=== PATIENT | male | born 1995 | race African-American/Black ===

== ENCOUNTER 2016-10-17 15:53 | Emergency (ER) | payer SELFPAY ==
[~2016-10-17] VITALS: Ht 180.3 cm; Wt 70.3 kg
[~2016-10-17 15:53] MED LIST: DOCU-27 PO; HYDR-2666 PO
[2016-10-17] MEDS ORDERED: IV NORMAL SALINE 1000ML BAG 1,000 ML IV ONE (16:15)
[2016-10-17] MEDS ORDERED: ONDANSETRON PF 4 MG/2 ML VIAL. IV ONE (16:15)
[2016-10-17 16:42] LABS: BASO # 0.1 x10^3/uL (0.0-0.2); BASO % 1 % (0-3); EOS % 2 % (0-3); HEMOGLOBIN 13.8 g/dL (13.0-17.5); LYMPH # 2.3 x10^3/uL (1.0-4.8); LYMPH % 30 % (24-48); MEAN CORPUSCULAR HEMOGLOBIN 27 pg (25-35); MEAN CORPUSCULAR HGB CONC 33 g/dL (31-37); MEAN CORPUSCULAR VOLUME 82 fL (79-100); MONO % 8 % (0-9); NEUT % 60 % (31-73); PLATELET COUNT 206 x10^3/uL (140-400); RED BLOOD COUNT 5.15 x10^6/uL (4.30-5.70); RED CELL DISTRIBUTION WIDTH 13.6 % (11.5-14.5); WHITE BLOOD COUNT 7.7 x10^3/uL (4.0-11.0)
[2016-10-17 17:02] LABS: CREATININE 1.1 mg/dL (0.7-1.3); GFR 100.4; POTASSIUM 3.8 mmol/L (3.5-5.1)
[2016-10-17 17:16] LABS: ALBUMIN 3.7 g/dL (3.4-5.0); TOTAL BILIRUBIN 0.3 mg/dL (0.2-1.0); TOTAL PROTEIN 7.4 g/dL (6.4-8.2)
[2016-10-17] MEDS ORDERED: ONDA4TAB7 PO (17:33)
--- NOTE | 2016-10-17 17:33 | PHYS DOC ---
Past Medical History Past Medical History: No Pertinent History Past Surgical History: Other Additional Past Surgical Histo: HEMORRHOID Additional Information: 0.25 PPD Alcohol Use: None Drug Use: Marijuana Adult General Chief Complaint Chief Complaint: NAUSEA/VOMITING/DIARRHA HPI HPI 21-year-old otherwise healthy male presents to day history of cough and nausea. He states he has been coughing up some green phlegm. He is not had any high fevers chills or sweats. No hemoptysis. [] Review of Systems Review of Systems Constitutional: Denies fever or chills [] Eyes: Denies change in visual acuity, redness, or eye pain [] HENT: Denies nasal congestion or sore throat [] Respiratory: Denies cough or shortness of breath [] Cardiovascular: No additional information not addressed in HPI [] GI: Per history of present illness [] : Denies dysuria or hematuria [] Musculoskeletal: Denies back pain or joint pain [] Integument: Denies rash or skin lesions [] Neurologic: Denies headache, focal weakness or sensory changes [] Endocrine: Denies polyuria or polydipsia [] Current Medications Current Medications Current Medications Medications (Trade) Dose Ordered Sig/Warren Start Time Stop Time Status Last Admin Dose Admin Ondansetron HCl (Zofran) 4 mg 1X ONCE 10/17/16 16:15 10/17/16 16:18 DC 10/17/16 16:45 4 MG Sodium Chloride (Iv Sodium Chloride 0.9% 1000ml Bag) 1,000 ml @ 1,000 mls/hr 1X ONCE 10/17/16 16:15 10/17/16 17:14 DC 10/17/16 16:45 1,000 MLS/HR Allergies Allergies Allergies Coded Allergies Type Severity Reaction Last Updated Verified No Known Drug Allergies 06/06/14 No Physical Exam Physical Exam Constitutional: Well developed, well nourished, no acute distress, non-toxic appearance. [] HENT: Normocephalic, atraumatic, bilateral external ears normal, oropharynx moist, no oral exudates, nose normal. [] Eyes: PERRLA, EOMI, conjunctiva normal, no discharge. [] Neck: Normal range of motion, no tenderness, supple, no stridor. [] Cardiovascular:Heart rate regular rhythm, no murmur [] Lungs & Thorax: Bilateral breath sounds clear to auscultation [] Abdomen: Bowel sounds normal, soft, no tenderness, no masses, no pulsatile masses. [] Skin: Warm, dry, no erythema, no rash. [] Back: No tenderness, no CVA tenderness. [] Extremities: No tenderness, no cyanosis, no clubbing, ROM intact, no edema. [] Neurologic: Alert and oriented X 3, normal motor function, normal sensory function, no focal deficits noted. [] Psychologic: Affect normal, judgement normal, mood normal. [] Current Patient Data Vital Signs Vital Signs Date Time Temp Pulse Resp B/P Pulse Ox O2 Delivery O2 Flow Rate FiO2 10/17/16 16:09 99 76 20 157/81 98 Room Air 99.0 Lab Values Laboratory Tests Test 10/17/16 16:21 White Blood Count 7.7x10^3/uL (4.0-11.0) Red Blood Count 5.15x10^6/uL (4.30-5.70) Hemoglobin 13.8g/dL (13.0-17.5) Hematocrit 42.0% (39.0-53.0) Mean Corpuscular Volume 82fL (79-100) Mean Corpuscular Hemoglobin 27pg (25-35) Mean Corpuscular Hemoglobin Concent 33g/dL (31-37) Red Cell Distribution Width 13.6% (11.5-14.5) Platelet Count 206x10^3/uL (140-400) Neutrophils (%) (Auto) 60% (31-73) Lymphocytes (%) (Auto) 30% (24-48) Monocytes (%) (Auto) 8% (0-9) Eosinophils (%) (Auto) 2% (0-3) Basophils (%) (Auto) 1% (0-3) Neutrophils # (Auto) 4.6x10^3uL (1.8-7.7) Lymphocytes # (Auto) 2.3x10^3/uL (1.0-4.8) Monocytes # (Auto) 0.6x10^3/uL (0.0-1.1) Eosinophils # (Auto) 0.1x10^3/uL (0.0-0.7) Basophils # (Auto) 0.1x10^3/uL (0.0-0.2) Sodium Level 142mmol/L (136-145) Potassium Level 3.8mmol/L (3.5-5.1) Chloride Level 108mmol/L (98-107) H Carbon Dioxide Level 26mmol/L (21-32) Anion Gap 8 (6-14) Blood Urea Nitrogen 10mg/dL (8-26) Creatinine 1.1mg/dL (0.7-1.3) Estimated GFR (Cockcroft-Gault) 100.4 BUN/Creatinine Ratio 9 (6-20) Glucose Level 114mg/dL (70-99) H Calcium Level 9.0mg/dL (8.5-10.1) Total Bilirubin 0.3mg/dL (0.2-1.0) Aspartate Amino Transferase (AST) 22U/L (15-37) Alanine Aminotransferase (ALT) 11U/L (16-63) L Alkaline Phosphatase 96U/L (46-116) Total Protein 7.4g/dL (6.4-8.2) Albumin 3.7g/dL (3.4-5.0) Albumin/Globulin Ratio 1.0 (1.0-1.7) Laboratory Tests 10/17/16 16:21 Laboratory Tests 10/17/16 16:21 EKG EKG [] Radiology/Procedures Radiology/Procedures [] Course & Med Decision Making Course & Med Decision Making Pertinent Labs and Imaging studies reviewed. (See chart for details) [ED course: Evaluation reveals 21-year-old male with cough and nausea. His chest x-ray was unremarkable his labs were also unremarkable. Patient was given IV fluids and Zofran during stay in the emergency department which did help alleviate his symptoms. Patient is stable for discharge home.] Dragon Disclaimer Dragon Disclaimer This electronic medical record was generated, in whole or in part, using a voice recognition dictation system. Departure Departure Impression: Primary Impression: Nausea and vomiting Disposition: 01 HOME, SELF-CARE Condition: STABLE Referrals: NO PCP (PCP) Patient Instructions: Nausea and Vomiting Additional Instructions: Thank you for allowing us to participate in your care today. Followup with your primary care physician in 3 days if your symptoms do not improve. Return to the emergency department you have any new or concerning findings. This should be evaluated by the primary care physician and any necessary consulting services for continued management within a few days after discharge. Return to emergency room if you have any new or concerning symptoms including but not limited to fever, chills, nausea, vomiting, intractable pain, any new rashes, chest pain, shortness of air, uncontrolled bleeding, difficulty breathing, and/or vision loss. You may have been prescribed medication that can change in your level of thinking and ability to operate machinery. These medications include hydrocodone and Ativan. Also, Benadryl has been known to do this as well. Be sure to check with your pharmacist and ask if the medications you've prescribed can affect your level of consciousness. I recommend not operating heavy machinery or driving while on medication such as these. Scripts Ondansetron Hcl (Zofran)4 Mg Tablet1 Tab PO Q8HRS PRN NAUSEA #20 TAB Prov:AMBERLY BRAVO DO 10/17/16 Problem Qualifiers Primary Impression: Nausea and vomiting Vomiting type: unspecified Vomiting Intractability: unspecified Qualified Code: R11.2 - Nausea with vomiting, unspecified AMBERLY BRAVO DO Oct 17, 2016 17:33
[2016-10-17 17:52] VITALS: BP 135/73
[2016-10-17 18:31] LABS: OBC FLU VALID
--- NOTE | 2016-10-18 08:12 | RAD ---
Two view chest History:cough . PA and lateral views of the chest are submitted. Comparison: None Findings: There is no significant infiltrate, pleural effusion, or pneumothorax. The pericardial cardiac silhouette is within normal limits in size. The trachea is in the midline. No acute osseous abnormality is identified. Impression: There is no evidence of acute cardiopulmonary disease.
== END 2016-10-17 18:02 | disposition home or self-care (01) ==
LOC: ER 15:53
DX: R11.2 Nausea with vomiting, unspecified (principal); R05 Cough; F17.200 Nicotine dependence, unspecified, uncomplicated; F12.10 Cannabis abuse, uncomplicated
CPT/HCPCS: 36415; 71020; 80053; 85027; 87804; 96361; 96374; 99285; J2405; J7030

== ENCOUNTER 2017-07-25 19:34 | Emergency (ER) | payer SELFPAY ==
[~2017-07-25] VITALS: Ht 177.8 cm; Wt 70.3 kg
[~2017-07-25 19:34] MED LIST changes: +DOCU-109 PO; -DOCU-27 PO; -HYDR-2666 PO; +HYDR-2758 PO; +ONDA4TAB7 PO
[2017-07-25 20:28] LABS: BASO # 0.1 x10^3/uL (0.0-0.2); BASO % 1 % (0-3); EOS % 3 % (0-3); HEMATOCRIT 43.6 % (39.0-53.0); HEMOGLOBIN 14.1 g/dL (13.0-17.5); LYMPH # 4.7 x10^3/uL (1.0-4.8); LYMPH % 40 % (24-48); MEAN CORPUSCULAR HEMOGLOBIN 27 pg (25-35); MEAN CORPUSCULAR HGB CONC 32 g/dL (31-37); MEAN CORPUSCULAR VOLUME 83 fL (79-100); MONO % 6 % (0-9); NEUT % 51 % (31-73); PLATELET COUNT 220 x10^3/uL (140-400); RED BLOOD COUNT 5.26 x10^6/uL (4.30-5.70); RED CELL DISTRIBUTION WIDTH 13.1 % (11.5-14.5); WHITE BLOOD COUNT 11.8 x10^3/uL (4.0-11.0)
[2017-07-25] MEDS ORDERED: ONDANSETRON PF 4 MG/2 ML VIAL. IV ONE ×2 (20:30→22:15)
[2017-07-25] MEDS ORDERED: FAMOTIDINE 20 MG/2 ML VIAL IVP ONE (20:30)
[2017-07-25] MEDS ORDERED: KETOROLAC 30 MG/ML INJ. IV ONE (20:30)
[2017-07-25] MEDS ORDERED: MORPHINE SULFATE 10 MG/ML VIAL. IV ONE (20:30)
[2017-07-25 20:32] LABS: BILIRUBIN,URINE NEGATIVE (NEG); GLUCOSE,URINE NEGATIVE (NEG); NITRITE,URINE NEGATIVE (NEG); PROTEIN,URINE 30 mg/dL (NEG-TRACE)
[2017-07-25 20:38] LABS: BARBITURATES NEG (NEG); BENZODIAZEPINES NEG (NEG); CANNABINOIDS POS (NEG); COCAINE NEG (NEG); METHADONE NEG (NEG); OPIATES NEG (NEG); PHENCYCLIDINE NEG (NEG)
[2017-07-25 20:40] LABS: BACTERIA,URINE 0 /HPF (0-FEW); RBC,URINE >40 /HPF (0-2); SQUAMOUS EPITHELIAL CELL,UR OCC /LPF
[2017-07-25 20:42] LABS: CALCIUM 9.5 mg/dL (8.5-10.1); CREATININE 1.3 mg/dL (0.7-1.3); GFR 82.1; POTASSIUM 3.3 mmol/L (3.5-5.1)
[2017-07-25] MEDS ORDERED: IOHEXOL 300 MG/ML 100ML VIAL. IV ONE (20:45)
[2017-07-25] MEDS ORDERED: CONTRAST GIVEN MC PRN (20:45)
[2017-07-25 20:48] LABS: TOTAL BILIRUBIN 0.2 mg/dL (0.2-1.0); TOTAL PROTEIN 7.9 g/dL (6.4-8.2)
--- NOTE | 2017-07-25 21:23 | RAD ---
CT abdomen and pelvis with contrast TECHNIQUE: Helical CT imaging of the abdomen and pelvis acquired with 75 mL Omnipaque 300 intravenous contrast. HISTORY: Dysuria, right lower quadrant abdominal pain. Abdomen findings: There is mild delayed right nephrogram and mild right renal hydronephrosis associated with a 5 mm distal right ureteral obstructing calculus. There is also a right renal lower pole 3 mm nonobstructing calculus. Left kidney, adrenal glands, spleen, pancreas, liver and gallbladder are unremarkable. The GI tract including the appendix demonstrates no obstruction or inflammatory change. No abdominal fluid or adenopathy. Lung bases and bones are unremarkable. Pelvis findings: 5 mm distal right ureteral calculus. Bladder, prostate, rectum and bones are unremarkable. IMPRESSION: 1. Mild right renal hydronephrosis and delayed right renal nephrogram associated with a 5 mm distal right ureteral calculus. 2. The appendix is negative. Exposure: One or more of the following individualized dose reduction techniques were utilized for this examination: 1. Automated exposure control 2. Adjustment of the mA and/or kV according to patient size 3. Use of iterative reconstruction technique Electronically signed by: Dimitry Ring MD (07/25/2017 9:20 PM) [facility]
[2017-07-25] MEDS ORDERED: HYDROmorphone 2 MG/ML VIAL IV ONE (22:15)
--- NOTE | 2017-07-25 22:58 | PHYS DOC ---
Past Medical History Past Medical History: No Pertinent History, Other Additional Past Medical Histor: HEMORRHOID Past Surgical History: Other Additional Past Surgical Histo: HEMORRHOIDECTOMY Alcohol Use: None Drug Use: Marijuana Adult General Chief Complaint Chief Complaint: ABDOMINAL PAIN HPI HPI Patient is a 22 year old medical presents with right lower quadrant moderate abdominal pain intermittently for one week. Patient states he started vomiting today. Patient denies any diarrhea. Denies any fever. He states his pain radiates into his "balls". Patient denies any urgency frequency dysuria. Denies any previous history of kidney stones. He is in the ED actively vomiting. Review of Systems Review of Systems Constitutional: Denies fever or chills [] Eyes: Denies change in visual acuity, redness, or eye pain [] HENT: Denies nasal congestion or sore throat [] Respiratory: Denies cough or shortness of breath [] Cardiovascular: No additional information not addressed in HPI [] GI: Right lower quadrant abdominal pain radiating into the testicles. Nausea and vomiting. : Denies dysuria or hematuria [] Musculoskeletal: Denies back pain or joint pain [] Integument: Denies rash or skin lesions [] Neurologic: Denies headache, focal weakness or sensory changes [] All other systems were reviewed and found to be within normal limits, except as documented in this note. Current Medications Current Medications Current Medications Medications (Trade) Dose Ordered Sig/Warren Start Time Stop Time Status Last Admin Dose Admin Ceftriaxone Sodium 50 ml @ 100 mls/hr 1X ONCE 07/25/17 22:15 07/25/17 22:44 DC Famotidine (Pepcid Vial) 20 mg 1X ONCE 07/25/17 20:30 07/25/17 20:31 DC 07/25/17 20:33 20 MG Hydromorphone HCl (Dilaudid) 1 mg 1X ONCE 07/25/17 22:15 07/25/17 22:16 DC Info (Do NOT chart on this entry -- for MONITORING) 1 each PRN DAILY PRN 07/25/17 20:45 07/27/17 20:44 Iohexol (Omnipaque 300 Mg/ml) 75 ml 1X ONCE 07/25/17 20:45 07/25/17 20:46 DC 07/25/17 21:09 75 ML Ketorolac Tromethamine (Toradol) 30 mg 1X ONCE 07/25/17 20:30 07/25/17 20:31 DC 07/25/17 20:32 30 MG Morphine Sulfate 5 mg 1X ONCE 07/25/17 20:30 07/25/17 20:31 DC 07/25/17 20:32 5 MG Ondansetron HCl (Zofran) 4 mg 1X ONCE 07/25/17 22:15 07/25/17 22:16 DC Allergies Allergies Allergies Coded Allergies Type Severity Reaction Last Updated Verified No Known Drug Allergies 06/06/14 No Physical Exam Physical Exam Constitutional: Well developed, well nourished, no acute distress, non-toxic appearance. [] HENT: Normocephalic, atraumatic, bilateral external ears normal, oropharynx moist, no oral exudates, nose normal. [] Eyes: PERRLA, EOMI, conjunctiva normal, no discharge. [] Neck: Normal range of motion, no tenderness, supple, no stridor. [] Cardiovascular:Heart rate regular rhythm, no murmur [] Lungs & Thorax: Bilateral breath sounds clear to auscultation [] Abdomen: Bowel sounds normal, soft, diffuse tenderness on the mid and right lower quadrant with negative psoas sign, negative obturator sign, negative Rovsing sign, no guarding, no masses, no pulsatile masses. [] Skin: Warm, dry, no erythema, no rash. [] Back: No tenderness, no CVA tenderness. [] Extremities: No tenderness, no cyanosis, no clubbing, ROM intact, no edema. [] Neurologic: Alert and oriented X 3, normal motor function, normal sensory function, no focal deficits noted. [] Psychologic: Affect normal, judgement normal, mood normal. [] Current Patient Data Vital Signs Vital Signs Date Time Temp Pulse Resp B/P (MAP) Pulse Ox O2 Delivery O2 Flow Rate FiO2 07/25/17 20:32 20 100 Room Air 07/25/17 20:00 97.9 79 148/88 (108) 97.9 Lab Values Laboratory Tests Test 07/25/17 20:00 White Blood Count 11.8 x10^3/uL (4.0-11.0) H Red Blood Count 5.26 x10^6/uL (4.30-5.70) Hemoglobin 14.1 g/dL (13.0-17.5) Hematocrit 43.6 % (39.0-53.0) Mean Corpuscular Volume 83 fL (79-100) Mean Corpuscular Hemoglobin 27 pg (25-35) Mean Corpuscular Hemoglobin Concent 32 g/dL (31-37) Red Cell Distribution Width 13.1 % (11.5-14.5) Platelet Count 220 x10^3/uL (140-400) Neutrophils (%) (Auto) 51 % (31-73) Lymphocytes (%) (Auto) 40 % (24-48) Monocytes (%) (Auto) 6 % (0-9) Eosinophils (%) (Auto) 3 % (0-3) Basophils (%) (Auto) 1 % (0-3) Neutrophils # (Auto) 6.0 x10^3uL (1.8-7.7) Lymphocytes # (Auto) 4.7 x10^3/uL (1.0-4.8) Monocytes # (Auto) 0.7 x10^3/uL (0.0-1.1) Eosinophils # (Auto) 0.3 x10^3/uL (0.0-0.7) Basophils # (Auto) 0.1 x10^3/uL (0.0-0.2) Urine Collection Type Unknown Urine Color Yellow Urine Clarity Cloudy Urine pH 7.0 Urine Specific [place] 1.025 Urine Protein 30 mg/dL (NEG-TRACE) Urine Glucose (UA) Negative mg/dL (NEG) Urine Ketones (Stick) Negative mg/dL (NEG) Urine Blood Large (NEG) Urine Nitrite Negative (NEG) Urine Bilirubin Negative (NEG) Urine Urobilinogen Dipstick 1.0 mg/dL (0.2 mg/dL) Urine Leukocyte Esterase Small (NEG) Urine RBC >40 /HPF (0-2) Urine WBC 1-4 /HPF (0-4) Urine Squamous Epithelial Cells Occ /LPF Urine Bacteria 0 /HPF (0-FEW) Urine Mucus Slight /LPF Sodium Level 142 mmol/L (136-145) Potassium Level 3.3 mmol/L (3.5-5.1) L Chloride Level 105 mmol/L (98-107) Carbon Dioxide Level 28 mmol/L (21-32) Anion Gap 9 (6-14) Blood Urea Nitrogen 11 mg/dL (8-26) Creatinine 1.3 mg/dL (0.7-1.3) Estimated GFR (Cockcroft-Gault) 82.1 BUN/Creatinine Ratio 8 (6-20) Glucose Level 112 mg/dL (70-99) H Calcium Level 9.5 mg/dL (8.5-10.1) Total Bilirubin 0.2 mg/dL (0.2-1.0) Aspartate Amino Transferase (AST) 20 U/L (15-37) Alanine Aminotransferase (ALT) 16 U/L (16-63) Alkaline Phosphatase 92 U/L (46-116) Total Protein 7.9 g/dL (6.4-8.2) Albumin 4.0 g/dL (3.4-5.0) Albumin/Globulin Ratio 1.0 (1.0-1.7) Lipase 171 U/L (73-393) Urine Opiates Screen Neg (NEG) Urine Methadone Screen Neg (NEG) Urine Barbiturates Neg (NEG) Urine Phencyclidine Screen Neg (NEG) Urine Amphetamine/Methamphetamine Neg (NEG) Urine Benzodiazepines Screen Neg (NEG) Urine Cocaine Screen Neg (NEG) Urine Cannabinoids Screen Pos (NEG) Ethyl Alcohol Level < 10 mg/dL (0-10) Urine Ethyl Alcohol Neg (NEG) Laboratory Tests 07/25/17 20:00 Laboratory Tests 07/25/17 20:00 EKG EKG [] Radiology/Procedures Radiology/Procedures []PROCEDURE: CT ABD PELV W/ IV CONTRST ONLY CT abdomen and pelvis with contrast TECHNIQUE: Helical CT imaging of the abdomen and pelvis acquired with 75 mL Omnipaque 300 intravenous contrast. HISTORY: Dysuria, right lower quadrant abdominal pain. Abdomen findings: There is mild delayed right nephrogram and mild right renal hydronephrosis associated with a 5 mm distal right ureteral obstructing calculus. There is also a right renal lower pole 3 mm nonobstructing calculus. Left kidney, adrenal glands, spleen, pancreas, liver and gallbladder are unremarkable. The GI tract including the appendix demonstrates no obstruction or inflammatory change. No abdominal fluid or adenopathy. Lung bases and bones are unremarkable. Pelvis findings: 5 mm distal right ureteral calculus. Bladder, prostate, rectum and bones are unremarkable. IMPRESSION: 1. Mild right renal hydronephrosis and delayed right renal nephrogram associated with a 5 mm distal right ureteral calculus. 2. The appendix is negative. Course & Med Decision Making Course & Med Decision Making Pertinent Labs and Imaging studies reviewed. (See chart for details) This is a 22-year-old male patient presenting to the ED today with nausea vomiting and right lower quadrant abdominal pain. Urine analysis is positive for large amount of blood and small amount of leukocytes. CBC with a WBC of 11.8 , CMP with potassium of 3.3. CT of the abdomen and pelvic was noted from 5 mm right distal ureteral calculus and negative for appendicitis. Patient has been vomiting since he came to the ED as well as complaining about pain. We have given him IV fluids Zofran, Dilaudid and morphine with minimal relief patient was also given Rocephin IV. With lack of urology at [facility] patient will be transferred to [facility]. Consulted with Dr. Santoro who accepted patient for admission. Dragon Disclaimer Dragon Disclaimer This electronic medical record was generated, in whole or in part, using a voice recognition dictation system. Departure Departure Impression: Primary Impression: Kidney stone Additional Impression: Pyelonephritis Disposition: 05 TRANSFER OTHER Condition: STABLE Referrals: NO PCP (PCP) Problem Qualifiers [facility] [employer] Jul 25, 2017 22:58
[2017-07-25 23:00] VITALS: BP 127/65
== END 2017-07-25 23:45 | disposition short-term general hospital (02) ==
LOC: ER 19:34
DX: N12 Tubulo-interstitial nephritis, not specified as acute or chronic (principal); N20.0 Calculus of kidney
CPT/HCPCS: 36415; 74177; 80053; 80307; 81001; 83690; 85025; 96365; 96375; 99285; G0480; J0690; J1885; J2270; J2405; Q9967; S0028; G0479

== ENCOUNTER 2019-10-04 08:01 | Emergency (ER) | payer BC ==
[~2019-10-04] VITALS: Ht 180.3 cm; Wt 70.0 kg
[~2019-10-04 08:01] MED LIST changes: -HYDR-2758 PO; +HYDR-2761 PO
[2019-10-04] MEDS ORDERED: IV NORMAL SALINE 1000ML BAG 1,000 ML IV SCH (08:16)
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
[2019-10-04] MEDS ORDERED: MORPHINE SULFATE 4 MG/ML VIAL. IV/SQ PRN (08:30)
[2019-10-04 08:41] LABS: BASO # 0.1 x10^3/uL (0.0-0.2); BASO % 1 % (0-3); EOS # 0.1 x10^3/uL (0.0-0.7); EOS % 2 % (0-3); HEMATOCRIT 42.9 % (39.0-53.0); HEMOGLOBIN 14.1 g/dL (13.0-17.5); LYMPH # 1.8 x10^3/uL (1.0-4.8); LYMPH % 22 % (24-48); MEAN CORPUSCULAR HEMOGLOBIN 27 pg (25-35); MEAN CORPUSCULAR HGB CONC 33 g/dL (31-37); MEAN CORPUSCULAR VOLUME 83 fL (79-100); MONO # 0.3 x10^3/uL (0.0-1.1); MONO % 4 % (0-9); NEUT # 5.8 x10^3/uL (1.8-7.7); NEUT % 71 % (31-73); PLATELET COUNT 231 x10^3/uL (140-400); RED CELL DISTRIBUTION WIDTH 13.6 % (11.5-14.5); WHITE BLOOD COUNT 8.2 x10^3/uL (4.0-11.0)
[2019-10-04 08:46] LABS: ANION GAP 13 (6-14); BLOOD UREA NITROGEN 13 mg/dL (8-26); BUN/CREATININE RATIO 9 (6-20); CALCIUM 9.4 mg/dL (8.5-10.1); CARBON DIOXIDE 24 mmol/L (21-32); CHLORIDE 107 mmol/L (98-107); CREATININE 1.4 mg/dL (0.7-1.3); GFR 74.1; GLUCOSE 105 mg/dL (70-99); POTASSIUM 3.4 mmol/L (3.5-5.1); SODIUM 144 mmol/L (136-145)
[2019-10-04 08:52] LABS: ALBUMIN 3.8 g/dL (3.4-5.0); ALBUMIN/GLOBULIN RATIO 1.1 (1.0-1.7); ALK PHOS 98 U/L (46-116); ALT (SGPT) < 6 U/L (16-63); AST (SGOT) 16 U/L (15-37); LIPASE 113 U/L (73-393); TOTAL BILIRUBIN 0.3 mg/dL (0.2-1.0); TOTAL PROTEIN 7.3 g/dL (6.4-8.2)
[2019-10-04] MEDS ORDERED: CONTRAST GIVEN. MC PRN (09:00)
[2019-10-04] MEDS ORDERED: IOHEXOL 300 MG/ML 100ML VIAL. IV ONE (09:00)
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
[2019-10-04 09:49] LABS: BILIRUBIN,URINE NEGATIVE (NEG); CLARITY,URINE CLOUDY; COLOR,URINE YELLOW; NITRITE,URINE NEGATIVE (NEG); PH,URINE 6.5; PROTEIN,URINE NEGATIVE (NEG-TRACE); UROBILINOGEN,URINE 0.2 mg/dL (0.2 mg/dL)
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
[2019-10-04 10:15] LABS: BACTERIA,URINE 0 /HPF (0-FEW); RBC,URINE 0 /HPF (0-2)
[2019-10-04 10:40] VITALS: BP 128/79
== END 2019-10-04 10:58 | disposition home or self-care (01) ==
LOC: ER 08:01
DX: S80.01XA Contusion of right knee, initial encounter (principal); S00.531A Contusion of lip, initial encounter; M54.2 Cervicalgia; R10.84 Generalized abdominal pain; V43.53XA Car driver injured in collision with pick-up truck in traffic accident, initial encounter; Y92.488 Other paved roadways as the place of occurrence of the external cause; Y93.89 Activity, other specified; Y99.8 Other external cause status
CPT/HCPCS: 29505; 36415; 70450; 70486; 71045; 72125; 73564; 74177; 80053; 81001; 83690; 85025; 96374; 99285; J2270; J7030; Q9967

== ENCOUNTER 2019-10-12 10:33 | Emergency (ER) | payer BC ==
[~2019-10-12] VITALS: Ht 180.3 cm; Wt 77.7 kg
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
[2019-10-12] MEDS ORDERED: DICL75TA PO (12:56)
[2019-10-12] MEDS ORDERED: CYCL10TA2 PO (12:56)
[2019-10-12] MEDS ORDERED: TRAM50TA PO (12:56)
[2019-10-12 13:07] VITALS: BP 129/59
== END 2019-10-12 13:10 | disposition home or self-care (01) ==
LOC: ER 10:33
DX: S39.012A Strain of muscle, fascia and tendon of lower back, initial encounter (principal); M25.561 Pain in right knee; F12.90 Cannabis use, unspecified, uncomplicated; F17.200 Nicotine dependence, unspecified, uncomplicated; Z98.890 Other specified postprocedural states; Z87.442 Personal history of urinary calculi; V89.2XXA Person injured in unspecified motor-vehicle accident, traffic, initial encounter; Y93.89 Activity, other specified; Y92.413 State road as the place of occurrence of the external cause; Y99.8 Other external cause status
CPT/HCPCS: 72110; 99284

== ENCOUNTER → 2019-10-19 | Outpatient (CLI) | payer BC ==
[2019-10-12 13:07] VITALS: BP 129/59
[~2019-10-19] MED LIST changes: +CYCL10TA2 PO; +DICL75TA PO; +TRAM50TA PO
--- NOTE | 2019-10-19 12:00 | RAD ---
MRI right knee without contrast dated 10/19/2019. No comparison available. CLINICAL INDICATION: Generalized knee pain for 2 weeks. TECHNIQUE: Routine multiplanar multisequence MR imaging performed. Parafindings: There are focal areas of bone marrow edema involving the anterior aspect of the medial femoral condyle and anterior aspect of the medial and lateral tibia subtle hypointense lines at the some chondral aspect of the anterior medial tibial and anterior medial femoral condyle, without significant cortical depression. The articular cartilage is intact. There is minimal edema within the far lateral aspect of the lateral femoral condyle. There is no significant joint effusion. No loose body. No significant popliteal cyst. There is some hyperintense signal within the substance of the ACL and within the intercondylar notch. No definite avulsion fracture. The ACL fibers appear to remain anatomically aligned. The PCL is intact. Medial and lateral collateral complexes are intact. Iliotibial band, popliteus tendon and pes anserine complex are intact. There is some mild hyperintense signal within the marrow of the tip of the distal fibula and within the soft tissues near the fibular styloid with some thickening of the arcuate ligament complex. No definite bony avulsion. Quadriceps and patellar tendon are intact. No abnormality of the medial or lateral retinaculum. Both menisci are normal in morphology and signal. No articular surface tear or para meniscal cyst. IMPRESSION: 1. Bone contusions of the anterior medial femoral condyle and the anterior aspect of the bilateral tibial plateaus suggestive of a hyperextension injury contusion pattern. There are possible subtle nondisplaced subchondral fracture lines of the medial tibial plateau and medial femoral condyle. No significant articular surface depression or chondral defect. 2. Increased signal throughout the substance of the ACL without definite full-thickness tear. This could be related to reactive edema edema or intrasubstance partial tearing. 3. There is some focal signal abnormality at the tip of the distal fibula with thickening and ill-definition of the arcuate ligament complex, raising the question of posterior lateral corner injury. The lateral collateral complex is otherwise intact. 4. No apparent meniscal tear. Electronically signed by: Edmond Morton MD (10/19/2019 11:58 AM) [id number]
== END | disposition home or self-care (01) ==
LOC: MRI 10:27
PROVIDERS: ATTEND Orthopaedic Surgery Sports Medicine
DX: S70.11XA Contusion of right thigh, initial encounter (principal); V89.2XXA Person injured in unspecified motor-vehicle accident, traffic, initial encounter
CPT/HCPCS: 73721